=== PATIENT | female | born 1980 | race Caucasian/White ===

== ENCOUNTER 2016-10-13 20:05 | Emergency (ER) | payer OTHER ==
[~2016-10-13] VITALS: Ht 154.9 cm; Wt 100.3 kg
[~2016-10-13 20:05] MED LIST: ABL/5 PO; BUPR150T5 PO; CHOL20009 PO; CLON1TAB3 PO; FLUV100T12 PO; PREN1TAB29 PO; PYRI1TAB30 PO
[2016-10-13 20:06] VITALS: TEMP 37.8; Ht 154.9 cm; Wt 100.3 kg
[2016-10-13] MEDS ORDERED: SULF800T23 PO (20:36)
[2016-10-13] MEDS ORDERED: CEPH500C PO (20:36)
[2016-10-13] MEDS ORDERED: FLUV100T12 PO (20:44)
[2016-10-13] MEDS ORDERED: GLC500 PO (20:44)
[2016-10-13] MEDS ORDERED: CEPHALEXIN 500MG HOME PACK 1 EA BTL PO ONE (20:45)
[2016-10-13] MEDS ORDERED: SEPTRA DS HOME PACK 1 EA VIAL PO ONE (20:45)
[2016-10-13 21:01] VITALS: BP 117/72; PULSE 105; O2SAT 99
--- NOTE | 2016-10-14 01:27 | EMERGENCY ROOM VISIT NOTE ---
History First contact with patient: 20:18 Chief Complaint: KNEEPAIN Stated Complaint: POSSIBLE INFECTION IN LT KNEE History of Present Illness The patient is a 36 year old female who presents to the Emergency Room with complaints of pain and swelling to her left knee worsening over the past one day. The patient has been following with her primary care physician for her left knee. She is scheduled to undergo MRI and start physical therapy next week. She has been applying ice to the knee, but noticed today she has redness on the inside part of the knee as well as a low-grade fever. The patient does not recall new injury or trauma. She has been using a cane to ambulate. She rates her discomfort a 7/10. Review of Systems More than 10 systems were reviewed and otherwise negative with the exception of history of present illness. Past Medical/Surgical History Medical Problems: (1) Advanced maternal age (AMA) in (2) Kidney disease (3) Normal labor and delivery (4) Pneumonia (5) Urinary problem Family History Cancer Heart disease Social History Smoking Status: Never Smoker Alcohol Use: occasionally Drug Use: none Marital Status: Housing Status: lives with family Occupation Status: employed Current/Historical Medications Scheduled Aripiprazole (Abilify), 5 MG PO QPM Bupropion Hcl (Bupropion Hcl Xl), 300 MG PO QAM Cephalexin Monohydrate (Keflex), 500 MG PO TID Cholecalciferol (Vitamin D), 2,000 INTER.UNIT PO DAILY Clonazepam (Klonopin), 1 MG PO BID Fluvoxamine Maleate (Luvox), 100 MG PO QAM Fluvoxamine Maleate (Luvox), 200 MG PO QPM Metformin HCl (Metformin HCl), 500 MG PO BID Vit W/ Ferrous Fumara (), 1 TAB PO DAILY Pyridoxine HCl (B6 Natural), 100 MG PO DAILY Sulfamethoxazole-Trimethoprim (Bactrim Ds 800MG/160MG), 1 TAB PO BID Allergies Coded Allergies: No Known Allergies (Unverified , 10/13/16) Physical Exam Vital Signs Date Time Temp Pulse Resp B/P Pulse Ox O2 Delivery O2 Flow Rate FiO2 10/13/16 21:01 105 18 117/72 99 10/13/16 20:06 37.8 121 18 110/66 94 Room Air Pain Rating (0-10): 3.0 Physical Exam VITALS: Vitals are noted on the nurse's note and reviewed by myself. Vital signs stable. GENERAL: Well-developed, well-nourished, white female, who is in no acute distress and resting comfortably. Patient is cooperative with the examination. HEAD: Normocephalic atraumatic. HEART: Regular rate and rhythm without murmurs gallops or rubs. LUNGS: Clear to auscultation bilaterally without wheezes, rales or rhonchi. No retractions or accessory muscle use. MUSCULOSKELETAL: Lung the medial aspect of the left knee is a 4 cm diameter erythematous patch consistent with cellulitis. This area is warm to touch and with mild tenderness. There is no obvious lymphangitis. No palpable cord or abscess. The patient is able to flex and extend the knee against resistance. NEURO: Patient was alert and oriented to person place and time. CN II through XII grossly intact. Medical Decision & Procedures Medications Administered Medications (Trade) Dose Ordered Sig/Arjun Route Start Time Stop Time Status Last Admin Dose Admin Trimethoprim/ Sulfamethoxazole (Sulfameth/ Trimeth Ds 800/ 160MG Home Pack) 1 homepack UD ONCE PO 10/13/16 20:45 10/13/16 20:46 DC 10/13/16 20:45 1 HOMEPACK Cephalexin Monohydrate (Keflex 500MG Home Pack) 1 homepack NOW ONCE PO 10/13/16 20:45 10/13/16 20:46 DC 10/13/16 20:45 1 HOMEPACK ED Course Physical exam and history were performed. Nursing notes and EMR were reviewed. Patient appears to have a localized cellulitis to the medial aspect of the left knee. This does not appear consistent with a joint infection or DVT. The patient will be given a course of Bactrim and Keflex with her first doses being provided here. She has palpable follow-up appointment next week, and was asked to keep those appointments. She was otherwise invited back to the ER with any new, worsening, or concerning symptoms. The chart was completed utilizing ffk environment Speech Voice Recognition Software. Grammatical errors, random word insertions, pronoun errors, and incomplete sentences are an occasional consequence of this system due to software limitations, ambient noise, and hardware issues. Any formal questions or concerns about the content, text, or information contained within the body of this dictation should be directly addressed to the provider for clarification. . Medical Decision Differential diagnosis: Etiologies such as cellulitis, abscess, MRSA infection, DVT, necrotizing fasciitis, dermatitis, drug eruption, as well as others were entertained.. Impression Primary Impression: Cellulitis Departure Information Dispostion Home / Self-Care Condition FAIR Prescriptions Cephalexin Monohydrate (Keflex) 500 Mg Cap 500 MG PO TID for 9 Days, #27 CAP Prov: Bandar Bear PA-C 10/13/16 Sulfamethoxazole-Trimethoprim (Bactrim Ds 800MG/160MG) 1 Tab Tab 1 TAB PO BID for 9 Days, #18 TAB Prov: Bandar Bear PA-C 10/13/16 Forms HOME CARE DOCUMENTATION FORM, IMPORTANT VISIT INFORMATION Patient Instructions My [facility] Additional Instructions You were seen and evaluated today on an emergency basis only. This is not a substitute for, or an effort to provide, complete comprehensive medical care. It is not possible to recognize and treat all injuries or illnesses in a single emergency department visit. For this reason it is recommended that you followup with your primary care physician this week for ongoing care and evaluation. Trimethoprim-Sulfamethoxazole(Bactrim DS): Take one pill twice daily for 10 days for your skin infection. All antibiotics can cause diarrhea. If this occurs and you feel worse or it does not resolve in 1-2 days follow up with your doctor or return to the Emergency Department as this could be signs of serious underlying problems. Any medication can cause an allergic reaction, stop the pills immediately and return to the ER for rash, hives, breathing difficulties, or swelling. Cephalexin(Keflex) 500mg: Take one pill 3 times daily for 10 days for your skin infection. All antibiotics can cause diarrhea. If this occurs and you feel worse or it does not resolve in 1-2 days follow up with your doctor or return to the Emergency Department as this could be signs of serious underlying problems. Any medication can cause an allergic reaction, stop the pills immediately and return to the ER for rash, hives, breathing difficulties, or swelling. You are welcome to return to the emergency department anytime with new, worsening, or concerning symptoms.
== END 2016-10-13 21:22 | disposition home or self-care (01) ==
LOC: C.EDB 20:06 → C.EDD 21:22
DX: L03.116 Cellulitis of left lower limb (principal); N18.9 Chronic kidney disease, unspecified; Z79.84 Long term (current) use of oral hypoglycemic drugs; Z79.899 Other long term (current) drug therapy; Z80.9 Family history of malignant neoplasm, unspecified; Z82.49 Family history of ischemic heart disease and other diseases of the circulatory system

== ENCOUNTER → 2016-10-16 | Outpatient (CLI) | payer OTHER ==
[~2016-10-16] MED LIST changes: +CEPH500C PO; +GLC500 PO; +SULF800T23 PO
--- NOTE | 2016-10-16 07:47 | DIAGNOSTIC IMAGING REPORT ---
MRI left knee LEFT LOWER EXT JOINT WITHOUT CLINICAL HISTORY: L KNEE EFFUSION pain TECHNIQUE: MRI multi axial acquisition COMPARISON STUDY: None FINDINGS: Moderate joint effusion. Edematous change of the infrapatellar fat. Mild prepatellar soft tissue edema. Signal characteristics the osseous structures are unremarkable. Cruciate ligaments are intact. Collateral ligaments are intact. Medial and lateral menisci are unremarkable in configuration. There is septated fluid pocket within the proximal gastrocnemius muscle. This potentially represents a partial muscle tear and/or intramuscular hematoma. It measures 3.4 x 1.7 cm. There is also popliteal cyst posterior to the medial joint compartment have a maximum dimensions of 2.6 x 2.0 cm. Area collateral ligaments are intact. There is no significant fat fluid level. Several synechiae are identified in the suprapatellar bursal region. IMPRESSION: 1. Joint effusion with several synechiae of the suprapatellar bursa. 2. Considerable edematous change of the infrapatellar fat. 3. Septated fluid pocket within the proximal gastrocnemius muscle suggesting hematoma and/or partial tear 4. Small posterior popliteal cyst Electronically signed by: Randal Arriaga M.D. 10/16/2016 7:46 AM Dictated Date/Time: 10/16/2016 7:33 AM
== END | disposition home or self-care (01) ==
LOC: C.MRI 05:55
PROVIDERS: ATTEND Family Medicine Sports Medicine
DX: M25.462 Effusion, left knee (principal)

== ENCOUNTER → 2017-01-22 | Outpatient (CLI) | payer OTHER ==
[~2017-01-22] MED LIST changes: -CEPH500C PO; -SULF800T23 PO
[2017-01-22 10:05] LABS: CHOLESTEROL/HDL RATIO 3.2
== END | disposition home or self-care (01) ==
LOC: C.LAB1850 08:13
PROVIDERS: ATTEND Psychiatry & Neurology Child & Adolescent Psychiatry
DX: F32.9 Major depressive disorder, single episode, unspecified (principal)